=== PATIENT | male | born 1950 | race Caucasian/White ===

== ENCOUNTER → 2016-10-07 | Outpatient (REF) | payer MEDICARE ==
[2016-10-07 11:39] LABS: ALBUMIN 3.8 GM/DL (3.2-5.2); ALBUMIN/GLOBULIN RATIO 1.23 (1.00-1.93); ALKALINE PHOSPHATASE 60 U/L (45-117); ALT/SGPT 15 U/L (12-78); ANION GAP 8 MEQ/L (8-16); AST/SGOT 15 U/L (15-37); BILIRUBIN,TOTAL 0.6 MG/DL (0.2-1.0); BLOOD UREA NITROGEN 18 MG/DL (7-18); CALCIUM LEVEL 8.8 MG/DL (8.8-10.2); CARBON DIOXIDE LEVEL 28 MEQ/L (21-32); CHLORIDE LEVEL 104 MEQ/L (98-107); CHOLESTEROL LEVEL 182 MG/DL (<200); CREATININE FOR GFR 0.79 MG/DL (0.70-1.30); GLOMERULAR FILTRATION RATE > 60.0 (>49); GLUCOSE, FASTING 94 MG/DL (80-110); POTASSIUM SERUM 4.5 MEQ/L (3.5-5.1); SODIUM LEVEL 140 MEQ/L (136-145); TOTAL PROTEIN 6.9 GM/DL (6.4-8.2); TRIGLYCERIDES LEVEL 61 MG/DL (<150)
== END ==
LOC: M SFHCCLAY 07:28
PROVIDERS: ATTEND Family Medicine
DX: Z12.5 Encounter for screening for malignant neoplasm of prostate (principal); I10 Essential (primary) hypertension
CPT/HCPCS: 80053; 80061; G0103

== ENCOUNTER 2020-06-01 15:00 | Emergency (ER) | payer MEDICARE ==
[~2020-06-01] VITALS: Ht 177.8 cm; Wt 69.2 kg
[2020-06-01] MEDS ORDERED: LISI10TA4 PO (15:07)
--- NOTE | 2020-06-01 16:22 | REP ---
INDICATION: right lower leg pain and swelling (please include pain area) COMPARISON: None. TECHNIQUE: Alonso scale and color Doppler evaluation using linear high frequency transducer. FINDINGS: Ultrasound examination of the right lower extremity deep venous structures from the common femoral vein to the popliteal vein demonstrates normal compressibility flow and wave patterns in response to respiration and augmentation. There is no evidence for deep venous thrombosis. Further evaluation at the site of pain and palpable lesion along the lateral aspect of the mid calf demonstrates a thrombosed varicose vein suggesting focal thrombophlebitis. IMPRESSION: No evidence for deep venous thrombosis. Focal area of suspected thrombophlebitis in a varicose vein along the lateral aspect of the calf. <Electronically signed by Saji March > 06/01/20 [id number]
[2020-06-01 16:46] VITALS: BP 164/93
== END 2020-06-01 16:51 | disposition home or self-care (01) ==
LOC: M ED 15:00
DX: I80.02 Phlebitis and thrombophlebitis of superficial vessels of left lower extremity (principal); Z79.899 Other long term (current) drug therapy; Z91.048 Other nonmedicinal substance allergy status

== ENCOUNTER 2021-01-17 21:15 | Emergency (ER) | payer MEDICARE ==
[~2021-01-17] VITALS: Ht 177.8 cm; Wt 81.8 kg
[~2021-01-17 21:15] MED LIST: LISI10TA22 PO
[2021-01-17 21:59] LABS: HEMATOCRIT 46.5 % (42.0-52.0); HEMOGLOBIN 15.9 g/dl (13.5-17.5); MEAN CORPUSCULAR HEMOGLOBIN 33.1 pg (27.0-33.0); MEAN CORPUSCULAR HGB CONC 34.2 g/dl (32.0-36.5); MEAN CORPUSCULAR VOLUME 96.9 fl (80.0-96.0); PLATELET COUNT, AUTOMATED 334 10^3/uL (150-450); WHITE BLOOD COUNT 8.4 10^3/uL (4.0-10.0)
--- NOTE | 2021-01-17 22:09 | REPVR ---
PROCEDURE INFORMATION: Exam: CT Head Without Contrast Exam date and time: 01/17/2021 9:59 PM Age: 70 years old Clinical indication: Other: AMS, fall, intoxicated TECHNIQUE: Imaging protocol: Computed tomography of the head without contrast. Radiation optimization: All CT scans at this facility use at least one of these dose optimization techniques: automated exposure control; mA and/or kV adjustment per patient size (includes targeted exams where dose is matched to clinical indication); or iterative reconstruction. COMPARISON: No relevant prior studies available. FINDINGS: Brain: There is moderate diffuse cerebellar atrophy. There is moderate age related parenchymal volume loss. White matter changes are demonstrated in the subcortical, centrum semiovale and periventricular white matter consistent with chronic age related small vessel ischemic changes. Cerebral ventricles: The degree of ventricular dilatation is normal for age and/or degree of atrophy present. Paranasal sinuses: Retention cyst right maxillary sinus. Mild inflammatory changes in the ethmoid sinuses. Mastoid air cells: Visualized mastoid air cells are well aerated. Vasculature: Atherosclerotic calcifications are demonstrated in the intracranial carotid arteries bilaterally as well as in the vertebral basilar system. Bones/joints: Unremarkable. No acute fracture. Soft tissues: Unremarkable. IMPRESSION: 1. There is moderate diffuse cerebellar atrophy. 2. There is moderate age related parenchymal volume loss. White matter changes are demonstrated in the subcortical, centrum semiovale and periventricular white matter consistent with chronic age related small vessel ischemic changes. 3. The degree of ventricular dilatation is normal for age and/or degree of atrophy present. Electronically signed by: Nilton Prince On 01/17/2021 22:09:31 PM
--- NOTE | 2021-01-17 22:14 | REPVR ---
PROCEDURE INFORMATION: Exam: CT Cervical Spine Without Contrast Exam date and time: 01/17/2021 9:59 PM Age: 70 years old Clinical indication: Other: AMS, fall, intoxicated TECHNIQUE: Imaging protocol: Computed tomography images of the cervical spine without contrast. Radiation optimization: All CT scans at this facility use at least one of these dose optimization techniques: automated exposure control; mA and/or kV adjustment per patient size (includes targeted exams where dose is matched to clinical indication); or iterative reconstruction. COMPARISON: No relevant prior studies available. FINDINGS: Bones/joints: Osteoporosis. Degenerative changes both temporomandibular joints. Discs/Spinal canal/Neural foramina: There are degenerative changes demonstrated in the atlantoaxial joint at C1-C2 with osteophytes and joint space narrowing. The transverse ligament is normal. Disc space narrowing at C3-C4 and C6-C7 with intervertebral osteophytes. Moderate foraminal stenosis on the right and severe foraminal stenosis on the left at C3, moderate bilateral foraminal stenosis at C4 and C5, severe bilateral foraminal stenosis at C6, findings secondary to osteophytic encroachment. Posterior disc protrusion at C2-C3 and C5-C6 results in mild cord impingement, disc osteophyte complex at C3-C4 and C6-C7 effaces the ventral subarachnoid space with mild cord impingement at C3-C4 and moderate cord impingement at C6-C7. Lungs: Lung apices are normal. Soft tissues: See "Discs/Spinal canal/Neural foramina" finding. IMPRESSION: Degenerative spondylosis. No acute findings. Electronically signed by: Nilton Prince On 01/17/2021 22:14:22 PM
[2021-01-17 23:32] LABS: ALBUMIN 3.6 GM/DL (3.2-5.2); ALT/SGPT 32 U/L (12-78); BILIRUBIN,DIRECT < 0.1 MG/DL (0.0-0.2); BILIRUBIN,TOTAL 0.3 MG/DL (0.2-1.0); BLOOD UREA NITROGEN 13 MG/DL (7-18); CALCIUM LEVEL 8.2 MG/DL (8.8-10.2); CARBON DIOXIDE LEVEL 26 MEQ/L (21-32); CHLORIDE LEVEL 105 MEQ/L (98-107); CREATININE FOR GFR 0.72 MG/DL (0.70-1.30); GLOMERULAR FILTRATION RATE > 60.0 (>42); GLUCOSE, FASTING 99 MG/DL (70-100); POTASSIUM SERUM 4.3 MEQ/L (3.5-5.1); SODIUM LEVEL 140 MEQ/L (136-145); TOTAL PROTEIN 6.7 GM/DL (6.4-8.2)
[2021-01-17 23:33] LABS: ACETAMINOPHEN LEVEL < 2.0 UG/ML (10.0-30.0); ETHYL ALCOHOL (ETHANOL) 0.249 % (0.000-0.010)
[2021-01-18 05:56] VITALS: BP 152/91
[2021-01-18] MEDS ORDERED: LORazepam 2 MG TAB PO PRN (06:40)
[2021-01-18 07:07] LABS: AMPHETAMINES LEVEL URINE NEGATIVE (NEGATIVE); BARBITURATES URINE NEGATIVE (NEGATIVE); BENZODIAZEPINES URINE NEGATIVE (NEGATIVE); CANNABINOIDS URINE NEGATIVE (NEGATIVE); COCAINE METABOLITE URINE NEGATIVE (NEGATIVE); METHADONE URINE NEGATIVE (NEGATIVE); OPIATES URINE NEGATIVE (NEGATIVE); PHENCYCLIDINE URINE NEGATIVE (NEGATIVE)
[2021-01-18] MEDS ORDERED: MULTIVITAMINS/MINERALS THERAP 1 TAB PO SCH (09:00)
[2021-01-18] MEDS ORDERED: FOLIC ACID 1 MG TAB PO SCH (09:00)
[2021-01-18] MEDS ORDERED: THIAMINE 100 MG TAB PO SCH (09:00)
== END 2021-01-18 11:07 | disposition home or self-care (01) ==
LOC: M ED 21:15
DX: F10.129 Alcohol abuse with intoxication, unspecified (principal); I10 Essential (primary) hypertension; F17.200 Nicotine dependence, unspecified, uncomplicated; G31.9 Degenerative disease of nervous system, unspecified; M47.892 Other spondylosis, cervical region; Z79.899 Other long term (current) drug therapy; J30.2 Other seasonal allergic rhinitis

== ENCOUNTER → 2023-02-17 | Outpatient (CLI) | payer MEDICARE ==
[2023-02-17 14:57] LABS: FOLATE 13.5 NG/ML (>5.4)
== END ==
LOC: M PLALAB 11:24
PROVIDERS: ATTEND Psychiatry & Neurology Neurology
DX: E53.8 Deficiency of other specified B group vitamins (principal); R41.3 Other amnesia